=== PATIENT | male | born 1965 | race Caucasian/White ===

== ENCOUNTER 2024-12-03 15:51 | Outpatient (REF) | payer OTHER, SELFPAY ==
--- NOTE | ~2024-12-03 | MR_ITS ---
EXAMINATION: MR BRAIN/IAC PROTOCOL WITHOUT CONTRAST CLINICAL INFORMATION: SNHL, bilateral ears. COMPARISON: None available. TECHNIQUE: MRI of the brain IAC protocol was obtained using routine sequences without contrast. FINDINGS: No restricted diffusion. No acute intracranial hemorrhage, mass effect, midline shift, hydrocephalus or herniation. Sheppard-white matter differentiation is normal. Cochlear and vestibular components of the intracranial nerves demonstrated no signal abnormality. Cerebellopontine angle cisterns demonstrated no gross masses. No signal abnormality within the brainstem. The anterior inferior cerebellar arteries are type III bilaterally. Flow-void signal within the main cerebral vessels is normal. Sellar/suprasellar region demonstrated no signal abnormality or gross masses. Craniocervical junction demonstrates normal position of the cerebellar tonsils. Midline structures are normal. Hyperintense T2 FLAIR signal within the mastoid air cells.. MR/MR head/brain wo con IMPRESSION: No signal abnormality or gross masses in either 8th cranial nerves. AICA,, type III bilaterally. No acute intracranial hemorrhage or acute brain abnormality. Probable inflammatory processes and mastoid air cells, bilaterally. . Electronically signed by: Charan Acevedo MD 12/06/2024 07:10 AM EDT
--- OUTSIDE RECORDS SUMMARY | 2024-12-03 15:56 | XMS_ITS | Clinical Summary ---
Author Organization [facility] Address [address] [place] [phone] Phone Care Team Providers Care Cath Lab Name Role Phone Elisa Bahena MD Primary Care Provider Medications valsartan (DIOVAN) 320 MG tablet Take 320 mg by mouth daily. Active amLODIPine (NORVASC) 5 MG tablet Take 5 mg by mouth daily. Active atorvastatin (LIPITOR) 10 MG tablet Take 10 mg by mouth daily. Active aspirin 81 mg chewable tablet Take 81 mg by mouth daily. Active ascorbic acid, vitamin C, (VITAMIN C) 500 MG tablet Take 1,000 mg by mouth daily. Active cholecalciferol (VITAMIN D3) 2,000 unit capsule Take by mouth daily. Active vxtwgwkq-drzp-c errous gluconat (CENTRUM WITH IRON) 9 mg iron/15 mL Liqd Take 15 mL by mouth daily. Active omega 3-hbk-abc-fish oil 1,000 mg (120 mg-180 mg) Cap Take 1 capsule by mouth daily. Active cetirizine (ZYRTEC) 10 MG tablet Take 10 mg by mouth 2 (two) times a day. Active raNITIdine (ZANTAC) 150 MG tablet Take 150 mg by mouth 2 (two) times a day. Active Social History Tobacco Use Types Packs/Day Years Used Date Smoking Tobacco: Never Alcohol Use Standard Drinks/Week Comments Not Asked 0 (1 standard drink = 0.6 oz pur e alcohol) Education Answer Date Recorded Are you interested in more education? Not on argenis e 07/26/2022 Are you concerned about learning? Not on file 07/26/2022 No 07/26/2022 No 07/26/2022 Digital Access Answer Date Recorded No 08/26/2022 No 08/26/2022 No 08/26/2022 Reliable internet access at home? Not on file 08/26/2022 Device with a working camera? Not on file Sex and Gender Information Value Date Recorded Sex Assigned at Not on file Legal Sex Male 3:43 PM EDT Gender Identity Not on file Sexual Orientation Not on file Last Filed Vital Signs Vital Sign Reading Time Taken Comments Blood Pressure 151/90 12/22/2015 1:08 PM EDT Pulse 83 12/22/2015 1:08 PM EDT Temperature - - Respiratory Rate - - Oxygen Saturation 98% 12/22/2015 1:08 PM EDT Inhaled Oxygen Concentration - - Weight 108.9 kg (240 lb) 12/22/2015 1:08 PM EDT Height 188 cm (6' 2 ) 12/22/2015 1:08 PM EDT Body Mass Index 30.81 12/22/2015 1:08 PM EDT Plan of Treatment Health Maintenance Due Date Last Done Comments Adult Td,Tdap Booster 1965 CREATININE LEVEL 1963 LIPID PANEL 1963 POTASSIUM LEVEL 1963 DEPRESSION SCREENING 1975 HEPATITIS C SCREENING 11/11/1981 HIV ONE-TIME SCREENING (18-6 5 YEARS) 11/11/1981 COLOGUARD 11/11/2008 COLONOSCOPY 11/11/2008 COLORECTAL CANCER SCREENING 11/11/2008 FIT TEST 11/11/2008 FOBT 11/11/2008 SIGMOIDOSCOPY 11/11/2008 VIRTUAL COLONOSCOPY 11/11/2008 PNEUMOCOCCAL VACCINES (50+ years) (1 of 1 - PCV) 11/11/2013 ZOSTER VACCINES (1 of 2) 11/11/2013 INFLUENZA VACCINE (#1) 2024 COVID-19 VACCINE (3 - 2024-2 6 season) 2024 04/13/2020, 03/22/2020 RSV VACCINE (1 - 1-dose 75+ series) 11/11/2038 SMOKING STATUS SCREENING (On ce After 26 Yrs) Completed 12/22/2015 HEPATITIS A VACCINES Aged Out No long er eligible based on patient's age to complete this topic HIB VACCINES Aged Out No longer eligi ble based on patient's age to complete this topic MENINGOCOCCAL VACCINES (ACWY) Aged Out No longer eligible based on patient's age to complete this topic MENINGOCOCCAL VACCINES (B) Aged Out N o longer eligible based on patient's age to complete this topic Medical Devices Not on file Insurance [employer] [facility] PPO EPO [employer] [facility] PPO EPO [employer] [facility] PPO EPO [employer] [facility] PPO EPO [email or web address] PPO EPO [employer] [facility] PPO EPO [facility] [[email or web address] PPO EPO [email or web address] PPO EPO [facility] [[email or web address]] PPO EPO Care Teams Cath Lab Relationship Specialty Start Date End Date Elisa Bahena MD [address] [place] [address] PCP - General Internal Medicine 11/15/15 Additional Source Comments The information contained in this document represents components of the legal health record. It is not the complete legal health record.[facility]
--- OUTSIDE RECORDS SUMMARY | 2024-12-03 15:56 | XMS_ITS | Clinical Summary ---
Author Organization [address] [place] [address] [place] [phone] Phone Care Team Providers Care Coding And Reimbursement Specialist Name Role Phone Elisa Bahena MD Primary Care Provider [phone] Allergies No known active allergies Medications valsartan (DIOVAN) 80 mg tablet Take 1 tablet (80 mg total) by mouth 2 (two) times a day. 1 Active tamsulosin (FLOMAX) 0.4 mg 24 hr capsule Take 1 capsule (0.4 mg total) by mouth 1 (one) time each day. 1 Active scopolamine (TRANSDERM-SCOP ) 1 mg over 3 days patch 3 day Apply 1 patch topically every 3rd (third) day. 5 Active metFORMIN XR (GLUCOPHAGE-XR) 500 mg 24 hr tablet Take 4 tablets (2,000 mg total) by mouth 1 (one) time each day. Active finasteride (PROSCAR) 5 mg tablet Take 1 tablet (5 mg total) by mouth 1 (one) time each day. 1 Active atorvastatin (LIPITOR) 10 mg tablet Take 1 tablet (10 mg total) by mouth at bedtime. 1 Active Active Problems Problem Noted Date Diagnosed Date Hypertension 11/02/2024 Assessment & Plan (11/02/2024 2:45 PM EDT): Blood pressure is elevated today I asked him to maintain a blood pressure log at home to permit his increase in his Diovan. He had previously been on amlodipine. I recommend low-salt diet and efforts weight loss. Elevated LDL cholesterol level 09/03/2021 Overview (11/02/2024): Elevated LDL cholesterol responsive to atorvastatin 10 mg daily. Elevated triglycerides. Last Assessment & Plan: Continue with statin. Will have lipid profile checked in the next few weeks. I would suggest a goal LDL of approximately 70 given he is diabetic. Assessment & Plan (11/02/2024 2:46 PM EDT): No recent lipid profiles. He agreed to have 1 done in the near future. Continue with atorvastatin. He will add aspirin for preventative reasons given he is diabetic. 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 Atrial fibrillation (CMS/HCC V24, CMS/HCC V28) 0 06/09/2020 Overview (11/02/2024): Atrial fibrillation and atrial flutter initially prescribed Multaq and transition to flecainide. He required a cardioversion and then ultimately went through pulmonary vein isolation in February 2018. He had an atrial flutter line at that time and has had no recurrences. He is no longer anticoagulated. He does follow his heart rhythm closely with an [employer] and [employer] device. CHADSVASC 1 for hypertension Last Assessment & Plan: No recurrent atrial fibrillation after ablation off medications and off of anticoagulation. He is monitoring clinically for any recurrence and does not believe he had more than a PAC which is on a rare occasion. Continue healthy lifestyle efforts at weight loss and regular exercise. We discussed possible use of the GLP inhibitors. Assessment & Plan (11/02/2024 2:43 PM EDT): Atrial fibrillation now several years from ablation and I am fairly comfortable with him not being anticoagulated despite a [id number] score of hypertension and diabetes mellitus. He will continue efforts at weight loss and His bundle exercise. His blood pressure aggressively. Palpitations 06/09/2020 Overview (11/02/2024): Palpitations Encounters Date Type Department Care Team Description 11/02/2024 1:40 PM EDT Office Visit [facility] [address] [place] [address] Darion Randle MD Atrial fibrillation, unspecified type (CMS/HCC V24, CMS/HCC V28) (Primary Dx); Primary hypertension; Elevated LDL cholesterol level from Last 3 Months Social History Tobacco Use Types Packs/Day Years Used Date Smoking Tobacco: Never Smokeless Tobacco: Never Alcohol Use Standard Drinks/Week Comments Yes 0 (1 standard drink = 0.6 oz pur e alcohol) Sex and Gender Information Value Date Recorded Sex Assigned at Not on file Legal Sex Male 2:08 PM EST Gender Identity Not on file Sexual Orientation Not on file Obstetrics History Last Filed Vital Signs Vital Sign Reading Time Taken Comments Blood Pressure 140/90 11/02/2024 1:53 PM EDT Pulse 88 11/02/2024 1:53 PM EDT Temperature - - Respiratory Rate - - Oxygen Saturation 98% 11/02/2024 1:53 PM EDT Inhaled Oxygen Concentration - - Weight 110 kg (243 lb) 11/02/2024 1:53 PM EDT Height 188 cm (6' 2 ) 11/02/2024 1:53 PM EDT Body Mass Index 31.2 11/02/2024 1:53 PM EDT Plan of Treatment Health Maintenance Due Date Last Done Comments Cholesterol Screening (Lipid Panel) 02/27/2022 Colorectal Cancer Screening: Colonoscopy 02/27/2022 HIV Screening 02/27/2022 Hepatitis C Screening 02/27/2022 Social Influencers of Health Screening 02/27/2022 Hypertension/CHF/CAD Annual BMP Blood Test 03/10/2022 Depression Screening 03/31/2024 Influenza Vaccine (#1) 2024 , 11/30/2022, 12/29/2021, Additional history exists DTaP,Tdap,and Td Vaccines (3 - Td or Tdap) 06/27/2031 06/26/2021, 05/09/2011 RSV Immunization Adult Patients (1 - 1-dose 75+ series) 11/11/2038 Zoster Vaccines Completed 02/23/2022, 11/16/2021 COVID-19 Vaccine Completed 01/11/2024, , 01/06/2022, Additional history exists Pneumococcal Vaccine: 50+ Years Completed 05/16/2024 HIB Vaccines Aged Out No longer eligi ble based on patient's age to complete this topic HPV Vaccines Aged Out No longer eligi ble based on patient's age to complete this topic Hepatitis A Vaccines Aged Out No long er eligible based on patient's age to complete this topic Hepatitis B Vaccines Aged Out No long er eligible based on patient's age to complete this topic IPV Vaccines Aged Out No longer eligi ble based on patient's age to complete this topic MMR Vaccines Aged Out No longer eligi ble based on patient's age to complete this topic Meningococcal ACWY Vaccine Aged Out N o longer eligible based on patient's age to complete this topic Meningococcal B Vaccine Aged Out No l onger eligible based on patient's age to complete this topic RSV Immunization Patients Under 20 months Aged Out No longer eligible based on patient's age to complete this topic Varicella Vaccines Aged Out No longer eligible based on patient's age to complete this topic Procedures Procedure Name Priority Date/Time Associated Diagnosis Comments ECG 12-LEAD Routine 11/02/2024 2:47 PM EDT Atrial fibrillation, unspecified type (CMS/HCC V24, CMS/HCC V28) from Last 3 Months Results * ECG 12 lead (11/02/2024 2:47 PM EDT) Ventricular Rate ECG 88 BPM GEMUSE Atrial Rate 88 BPM GEMUSE P-R Interval 136 ms GEMUSE QRS Duration 84 ms GEMUSE Q-T Interval 356 ms GEMUSE QTc 430 ms GEMUSE P Wave [place] 61 degrees GEMUSE R [place] 78 degrees GEMUSE T [place] 63 degrees GEMUSE ECG Interpretation Normal sinus rhythm Normal ECG No previous ECGs available Confirmed by Sacha RANDLE JOHN ([id number]) on 11/04/2024 4:34:39 PM GEMUSE 11/02/2024 2:00 PM EDT 11/04/2024 4:34 PM EDT us Darion Randle MD ECG ORDERABLES Edited Result - Final GEMUSE from Last 3 Months Insurance [employer] [facility] Care Teams Coding And Reimbursement Specialist Relationship Specialty Start Date End Date Elisa Bahena MD [address] [place] [address] PCP - General Internal Medicine 11/27/17
== END 2024-12-03 15:52 | disposition home or self-care (01) ==
LOC: HO.MRI 15:51
PROVIDERS: PCP Internal Medicine; Visit Provider Otolaryngology
DX: H90.3 Sensorineural hearing loss, bilateral (principal)
CPT/HCPCS: 70551

== ENCOUNTER → 2024-12-03 15:57 | Outpatient (BNV) | payer OTHER, SELFPAY | PROVIDERS: PCP Internal Medicine; Visit Provider Radiology Diagnostic Radiology | DX: H90.3 Sensorineural hearing loss, bilateral (principal) | CPT/HCPCS: 70551 ==